=== PATIENT | female | born 1945 | race Caucasian/White ===

== ENCOUNTER 2017-01-12 14:41 | Emergency (ER) | payer OTHER ==
--- NOTE | 2017-01-12 14:54 | EDPHY ---
H & P Stated Complaint: PSVT/DIZZY Time Seen by Provider: 01/12/17 14:54 - Personal History Current Tetanus/Diphtheria Vaccine: Yes - Medical/Surgical History Hx Asthma: No Hx Chronic Respiratory Disease: No Hx Diabetes: Yes Hx Cardiac Disease: Yes Hx Renal Disease: No Hx Cirrhosis: No Hx Alcoholism: No Hx HIV/AIDS: No Hx Splenectomy or Spleen Trauma: No Other PMH: PSVT/KBACK/KNEE SURG - Social History Smoking Status: Never smoked Constitutional: Initial Vital Signs Temperature (C) 36.4 C 01/12/17 14:44 Heart Rate 185 H 01/12/17 14:44 Respiratory Rate 19 01/12/17 14:44 Blood Pressure 95/82 H 01/12/17 14:44 O2 Sat (%) 98 01/12/17 14:44 O2 Delivery Mode Room Air O2 (L/minute) 2 Allergies/Adverse Reactions: No Known Allergies Allergy (Unverified 01/12/17 14:43) Home Medications: Medication Instructions Recorded Apixaban [Eliquis] 5 mg PO BID #90 tab 01/12/17 CeleBREX 01/12/17 Estrogen Patch 01/12/17 Metoprolol Tartrate 25 mg PO BID PRN #30 tablet 01/12/17 Omeprazole 01/12/17 Medical Decision Making - Diagnostics Imaging: Discussed imaging studies w/ order caller Radiologist ED Course/Re-evaluation: CHIEF COMPLAINT: Tachycardia HISTORY OF PRESENT ILLNESS: This patient is a 71 year old female with history of SVT arriving with her complaining of tachycardia and associated dizziness and chest pressure onset around 13:15 today, two hours ago. She has history of idiopathic paroxysmal supraventricular tachycardia which generally resolves within 10 minutes of onset. She is followed by a curtain fitter in her hometown in [place], and has had three prior stress tests, most recently 1.5 years ago. She is currently visiting from [place], and drove into the [facility] on Wednesday, four days ago. Today around lunchtime, she had a sudden head-garcia and onset of dizziness along with her sensation of tachycardia. She developed a pressure sensation under her clavicles and sternum, radiating up to her face. She denies any shortness of breath, nausea, abdominal pain, or other associated symptoms. She hopes to continue her road trip to [place], [place] soon. REVIEW OF SYSTEMS: A 10 point review of systems was performed and is negative with the exception of the elements mentioned in the history of present illness. PHYSICAL EXAM: HR, BP, O2 Sat, RR. Temp noted General Appearance: Alert, well hydrated, appropriate, and non-toxic appearing. Head: Atraumatic without scalp tenderness or obvious injury Eyes: Pupils equal, round, reactive to light and accommodation, EOMI, no trauma , no injection. Nose: Atraumatic, no rhinorrhea, clear. Throat: There is no erythema or exudates, no lesions, normal tonsils, mucus membranes moist. Neck: Supple, 2+ carotid upstroke, nontender, no lymphadenopathy. Respiratory: No retractions, no distress, no wheezes, and no accessory muscle use. Lungs are clear to auscultation bilaterally. Cardiovascular: Irregularly irregular, no murmurs, rubs, or gallops. Good capillary refill all extremities. Gastrointestinal: Abdomen is soft, nontender, non-distended, no masses, no rebound, no guarding, no peritoneal signs. Musculoskeletal: Normal active ROM of all extremities, atraumatic. Neurological: Alert, appropriate, and interactive. Nonfocal neuro exam. Skin: No rashes, good turgor, no nodules on palpation. Past medical history: Paroxysmal SVT, Mild diabetes mellitus (controlled by diet /exercise), GERD, osteoarthritis (Celebrex) Past surgical history: Spinal fusion surgery, knee surgery Family history: Noncontributory Social history: Nonsmoker. Occasional alcohol or marijuana use. at bedside. Visiting from [place]. DIAGNOSTICS/PROCEDURES/CRITICAL CARE TIME: 15:02 The 12 lead EKG was interpreted by myself. See hard copy and/or "tracemaster" electronic copy for interpretation. Atrial fibrillation, ventricular rate 138. Rate related ST depression in lateral leads. 15:35 The 12 lead EKG was interpreted by myself. See hard copy and/or "tracemaster" electronic copy for interpretation. Sinus mechanism, rate 82, no evidence of ischemia. Critical care time spent by me, Dr. Suarez, exclusively with this patient was 35 minutes, exclusive of PA time and exclusive of procedures. The organ system at risk was cardiac and I gave Amiodarone, consulted with cardiology, prescribed Eliquis and Metoprolol, performed multiple EKGs, reviewed CTA results , and observed the patient to prevent worsening of the patients condition. DIFFERENTIAL DIAGNOSIS: The differential diagnosis for the patient's narrow complex tachycardia included but was not limited to various causes of sinus tachycardia such as dehydration and medicines, SVT, atrial flutter, atrial fibrillation, pulmonary causes. MEDICAL DECISION MAKIN71 year old female presents with new onset atrial fibrillation, onset two hours prior to arrival. Discussed interventions including anticoagulation, antidysrhythmics, and electrocardioversion. The patient has atrial fibrillation with associated dizziness and substernal pressure - indication or cardioversion. Plan for electrocardioversion under conscious sedation. Plan to administer 150mg IV Amiodarone prior to conversion. 15:30 Patient spontaneously converted with Amiodarone administration. Reassessed. Electrocardioversion is no longer required. Plan to consult with cardiology. Patient is planning on travelling another 6 weeks. Patient has elevated D-dimer. Plan for CTA to rule out pulmonary embolism. 16:[address] Noyola, curtain fitter. He agrees with 25mg Metoprolol "[id number]" in case of future abnormal rhythm before the patient returns to [place] in six weeks. She will be instructed to take this if her heart rate is above 110 bpm. The patient's CHADS-VASc score 2. She is at moderate risk and is an appropriate anticoagulation candidate. The patient has no hematuria, no hematemesis, and no rectal bleeding. Plan to discharge in good condition with 45 days of Eliquis. I will send her with a copy of her EKG to bring to her curtain fitter in [place]. 16:23 Had a long discussion with the patient regarding the risks and benefits of anticoagulation via Eliquis and utilization of her beta meghana, as well as the importance of following up with her curtain fitter as soon as possible upon her return to [place]. 17:[address] Love, radiologist. CTA shows small partial subsegmental pulmonary embolus. This is not obstructive. I highly doubt this is the reason for her atrial fibrillation, and it seems she has likely had several episodes of atrial fibrillation in the past. She will be anticoagulated regardless for her atrial fibrillation, so no further treatment for pulmonary embolism is required at this time. 17:20 Reassessed patient. Discussed discovery of incidental pulmonary embolism. Plan to discharge home in good condition with prescriptions as discussed above. I will administer 5mg PO Eliquis prior to her departure. Follow up and return precautions discussed. The patient and her are comfortable with this plan. - Data Points Laboratory Results: Laboratory Results 01/12/17 14:53 01/12/17 14:53 01/12/17 01/12/17 01/12/17 14:53 14:53 14:53 WBC 12.00 10^3/uL H 10^3/uL (3.80-9.50) RBC 4.80 10^6/uL 10^6/uL (4.18-5.33) Hgb 14.8 g/dL g/dL (12.6-16.3) Hct 44.3 % % (38.0-47.0) MCV 92.3 fL fL (81.5-99.8) MCH 30.8 pg pg (27.9-34.1) MCHC 33.4 g/dL g/dL (32.4-36.7) RDW 13.0 % % (11.5-15.2) Plt Count 360 10^3/uL 10^3/uL (150-400) MPV 8.7 fL fL (8.7-11.7) Neut % (Auto) 67.5 % % (39.3-74.2) Lymph % (Auto) 21.7 % % (15.0-45.0) [place] % (Auto) 6.5 % % (4.5-13.0) Eos % (Auto) 3.2 % % (0.6-7.6) Baso % (Auto) 0.7 % % (0.3-1.7) Nucleat RBC Rel Count 0.0 % % (0.0-0.2) Absolute Neuts (auto) 8.11 10^3/uL H 10^3/uL (1.70-6.50) Absolute Lymphs (auto) 2.60 10^3/uL 10^3/uL (1.00-3.00) Absolute Monos (auto) 0.78 10^3/uL 10^3/uL (0.30-0.80) Absolute Eos (auto) 0.38 10^3/uL 10^3/uL (0.03-0.40) Absolute Basos (auto) 0.08 10^3/uL 10^3/uL (0.02-0.10) Absolute Nucleated RBC 0.00 10^3/uL 10^3/uL (0-0.01) Immature Gran % 0.4 % % (0.0-1.1) Immature Gran # 0.05 10^3/uL 10^3/uL (0.00-0.10) D-Dimer 0.85 ug/mLFEU H ug/mLFEU (0.00-0.50) Sodium 140 mEq/L mEq/L (134-144) Potassium 3.9 mEq/L mEq/L (3.5-5.2) Chloride 105 mEq/L mEq/L (97-110) Carbon Dioxide 19 mEq/l L mEq/l (22-31) Anion Gap 16 mEq/L mEq/L (8-16) BUN 16 mg/dL mg/dL (7-23) Creatinine 0.7 mg/dL mg/dL (0.6-1.0) Estimated GFR > 60 Glucose 147 mg/dL H mg/dL (70-100) Calcium 10.8 mg/dL H mg/dL (8.5-10.4) Phosphorus 3.7 mg/dL mg/dL (2.5-4.5) Magnesium 1.6 mg/dL mg/dL (1.6-2.3) Troponin I < 0.012 ng/mL ng/mL (0.000-0.034) NT-Pro-B Natriuret Pep 35 pg/mL pg/mL (0-125) Medications Given: Discontinued Medications Amiodarone HCl (Amiodarone Hcl) 100 mls @ 600 mls/hr IV ONCE ONE Stop: 01/12/17 15:22 Last Admin: 01/12/17 15:26 Dose: 100 mls Departure - Departure Disposition: Home, Routine, Self-Care Clinical Impression: Atrial fibrillation Qualifiers: Atrial fibrillation type: unspecified Qualified Code(s): I48.91 - Unspecified atrial fibrillation Pulmonary embolism Qualifiers: Pulmonary embolism type: other Chronicity: acute Acute cor pulmonale presence: without acute cor pulmonale Qualified Code(s): I26.99 - Other pulmonary embolism without acute cor pulmonale Condition: Good Instructions: Apixaban (By mouth), A-fib (Atrial Fibrillation) (ED), Supraventricular Tachycardia (ED) Additional Instructions: 1. Follow up with your curtain fitter when you return to [place]. We will give you a copy of your EKG to take with you. 2. Take your Eliquis as prescribed. We have also given you a prescription for Metoprolol to prevent further episodes of atrial fibrillation should you feel you are in a rapid rhythm and note a heart rate greater than 110. 3. Return to the emergency depart for increasing chest pressure or pain, shortness of breath, dizziness, weakness, or fainting, vomiting, or other worsening of condition. 4. Incidentally, we did find evidence of a very small pulmonary embolus which is not currently obstructing blood flow through your lungs. Eliquis will further help to resolve this small clot. We do not see a need for further intervention at this time. Return immediately to an emergency department for sharp or severe chest pains, difficulty breathing or shortness of breath, or other worsening of condition. Referrals: Victoriano Noyola MD [Medical Doctor] - As per Instructions Prescriptions: Apixaban [Eliquis] 5 mg PO BID #90 tab Metoprolol Tartrate 25 mg PO BID PRN #30 tablet PRN Reason: Heart Rate Greater Than 110 Report Scribed for: Minor Suarez Report Scribed by: Brittany Ramos Date of Report: 01/12/17 Time of Report: 16:13
--- NOTE | 2017-01-12 15:04 | CPEKG ---
Heart Rate: 138 RR Interval: 435 QRSD Interval: 86 QT Interval: 312 QTC Interval: 473 QRS [place]: 4 T Wave [place]: 20 EKG Severity - ABNORMAL ECG - EKG Impression: ATRIAL FIBRILLATION EKG Impression: BORDERLINE ST DEPRESSION, DIFFUSE LEADS Electronically Signed By: Minor Suarez 12-Jan-2017 22:02:14
[2017-01-12] MEDS ORDERED: PROPOFOL 200 MG/20 ML VIAL ONE (15:10)
[2017-01-12] MEDS ORDERED: AMIODARONE HCL 150 MG/100 ML BAG (1.5 MG/ML) IV ONE (15:10)
[2017-01-12] MEDS ORDERED: AMIODARONE HCL 150 MG/3 ML VIAL ONE (15:11)
[2017-01-12] MEDS ORDERED: AMIODARONE HCL 100 ML IV ONE (15:13)
[2017-01-12 15:20] LABS: % IMMATURE GRANULYOCYTES 0.4 % (0.0-1.1); ABSOLUTE IMMATURE GRANULOCYTES 0.05 10^3/uL (0.00-0.10); ADD DIFF? NO; ADD MORPH? NO; ADD SCAN? NO; ATYPICAL LYMPHOCYTE FLAG 0 (0-99); FRAGMENT RBC FLAG 0 (0-99); HEMATOCRIT 44.3 % (38.0-47.0); HEMOGLOBIN 14.8 g/dL (12.6-16.3); LEFT SHIFT FLG 0 (0-99); LIPEMIA HEMOLYSIS FLAG 80 (0-99); MEAN CELL HEMOGLOBIN 30.8 pg (27.9-34.1); MEAN CELL HEMOGLOBIN CONCENTR. 33.4 g/dL (32.4-36.7); MEAN CELL VOLUME 92.3 fL (81.5-99.8); MEAN PLATELET VOLUME 8.7 fL (8.7-11.7); PLATELET CLUMPS FLAG 10 (0-99); PLATELET COUNT 360 10^3/uL (150-400)
[2017-01-12 15:26] LABS: ANION GAP 16 mEq/L (8-16); CALCIUM 10.8 mg/dL (8.5-10.4); CARBON DIOXIDE 19 mEq/l (22-31); CHLORIDE 105 mEq/L (97-110); CREATININE 0.7 mg/dL (0.6-1.0); GLOMERULAR FILTRATION RATE > 60; GLUCOSE 147 mg/dL (70-100); MAGNESIUM 1.6 mg/dL (1.6-2.3); POTASSIUM 3.9 mEq/L (3.5-5.2); SODIUM 140 mEq/L (134-144)
[2017-01-12 15:37] LABS: TROPONIN I < 0.012 ng/mL (0.000-0.034)
[2017-01-12 15:42] VITALS: RESP 16
[2017-01-12] MEDS ORDERED: IOPAMIDOL (ISOVUE 370) 100 ML BTL IV ONE ×2 (16:15→16:40)
[2017-01-12] MEDS ORDERED: APIXABAN 5 MG TAB PO ONE (17:24)
[2017-01-12] MEDS: METOPROLOL TARTRATE 25 MG TAB PO PRN ×2 (17:38→17:39)
[2017-01-12 17:51] VITALS: BP 111/71; PULSE 76; TEMP 97.2; O2SAT 94
--- NOTE | 2017-01-15 08:43 | CPEKG ---
Heart Rate: 82 RR Interval: 732 P-R Interval: 188 QRSD Interval: 90 QT Interval: 388 QTC Interval: 453 P [place]: 24 QRS [place]: -15 T Wave [place]: 20 EKG Severity - BORDERLINE ECG - EKG Impression: SINUS RHYTHM EKG Impression: PROBABLE LEFT ATRIAL ABNORMALITY EKG Impression: BORDERLINE LEFT AXIS DEVIATION Electronically Signed By: Mauricio Srinivasan 15-Jan-2017 11:09:22
== END 2017-01-12 17:52 | disposition home or self-care (01) ==
DX: I48.91 Unspecified atrial fibrillation (principal); I26.99 Other pulmonary embolism without acute cor pulmonale; E11.9 Type 2 diabetes mellitus without complications; Z79.01 Long term (current) use of anticoagulants
CPT/HCPCS: 71275; 93005; 96374; 99291; J0282; J2704; Q9967